=== PATIENT | female | born 1995 | race Caucasian/White ===

== ENCOUNTER 2022-08-21 11:43 | Outpatient (REF) | payer OTHER, SELFPAY ==
--- NOTE | ~2022-08-21 | US_ITS ---
EXAMINATION: US DIAGNOSTIC ULTRASOUND BREAST, LEFT CLINICAL INFORMATION: 26-year-old with several months history tender palpable mass upper outer left breast. No known family history breast cancer. No prior breast imaging. COMPARISON: None. TECHNIQUE: Ultrasound left breast is targeted to the area of palpable concern. Patient is able to point to area of concern at time of imaging. Grayscale imaging and color Doppler are performed without and with harmonics. FINDINGS: The palpable concern corresponds to a solid circumscribed macrolobulated mass 2:00 position 10 cm from nipple measuring 4.4 x 3.2 x 3.6 cm. There is no other cystic or solid mass in the interrogated areas. No skin thickening or edema tracking in soft tissue planes. No focal duct ectasia. Results are discussed with the patient at time of visit. The palpable lesion most likely represents a fibroadenoma. Ultrasound-guided core sampling is recommended. US/US breast LT limited IMPRESSION: -Solid macrolobulated mass at site of palpable concern upper outer left breast measuring 4.4 cm, probable fibroadenoma. ASSESSMENT: BI-RADS 4: Suspicious (subcategory 4A: Low suspicion for malignancy) RECOMMENDATION: Ultrasound-guided core biopsy left breast mass. This patient's information was entered into a reminder system with a target due date for their next mammogram.
== END 2022-08-21 11:44 | disposition home or self-care (01) ==
LOC: HO.MAMMO 11:43
PROVIDERS: Visit Provider Internal Medicine
DX: N63.22 Unspecified lump in the left breast, upper inner quadrant (principal)
CPT/HCPCS: 76642

== ENCOUNTER → 2022-08-25 10:50 | Outpatient (BNVA) | payer OTHER, SELFPAY | PROVIDERS: PCP Internal Medicine; Referring Provider Internal Medicine; Visit Provider Surgery | DX: R92.8 Other abnormal and inconclusive findings on diagnostic imaging of breast (principal) | CPT/HCPCS: 99202 ==

== ENCOUNTER 2022-08-29 09:51 | Outpatient (REF) | payer OTHER, SELFPAY ==
--- NOTE | ~2022-08-29 | US_ITS ---
EXAMINATION: US DIAGNOSTIC ULTRASOUND BREAST, LEFT CLINICAL INFORMATION: Solid palpable macrolobulated mass upper outer left breast 4.4 cm for ultrasound-guided core sampling, probable fibroadenoma. COMPARISON: Targeted left breast ultrasound 08/21/2022. FINDINGS: Proper informed consent is obtained from the patient after discussion of the procedure, potential risks and complications, and alternatives. Patient was given an opportunity for questions. The patient appeared to understand. The patient consented to the procedure and signed the consent form. TECHNIQUE: Ultrasound of the breast is performed with real-time torres scale imaging and color Doppler. COMMENT: The solid mass is demonstrated by ultrasound, similar to recent imaging 08/21/2022. The patient was unable to proceed with the planned ultrasound-guided core sampling. Management options are discussed with the patient. Results and management options discussed with Dr. Parker on 08/29/2022. Patient is advised to maintain upcoming appointment with Dr. Parker at which time further management options will be decided. US/US breast ndl core biopsy LT IMPRESSION: -Ultrasound-guided core biopsy left breast mass is not performed. ASSESSMENT: BI-RADS 4: Suspicious (subcategory 4A: Low suspicion for malignancy) RECOMMENDATION: -Patient to keep upcoming appointment with Dr. Parker as planned.
== END 2022-08-29 09:52 | disposition home or self-care (01) ==
LOC: HO.MAMMO 09:51
PROVIDERS: PCP Internal Medicine; Visit Provider Surgery
DX: R92.8 Other abnormal and inconclusive findings on diagnostic imaging of breast (principal)
CPT/HCPCS: 19083

== ENCOUNTER → 2022-09-07 14:50 | Outpatient (BNVA) | payer OTHER, SELFPAY | PROVIDERS: PCP Internal Medicine; Visit Provider Surgery | DX: R92.8 Other abnormal and inconclusive findings on diagnostic imaging of breast (principal); N63.20 Unspecified lump in the left breast, unspecified quadrant | CPT/HCPCS: 99212 ==

== ENCOUNTER 2022-11-22 05:44 | Day surgery (SDC) | payer OTHER, SELFPAY ==
--- NOTE | 2022-11-21 09:57 | HO.ANESPROP2 ---
Documented by User: Livier Patel NP 11/21/22 09:57 HPI - Anesthesia Eval Consult details Narrative: 27yo F for Left Breast Lumpectomy PMFSH Active Problems Active Problems: All Active Problems (Updated 08/25/22 @ 11:42 by Herrera Parker MD) Left breast mass (Acute) Abnormal ultrasound of breast (Acute) Past Medical History Medical History Asthma Bipolar disorder Surgical History Surgical History History of wisdom tooth extraction Social History Social History Alcohol intake: never Patient Tobacco Use Status: Never used Tobacco Are you DNR?: No Advance Directives: No Advance Directives Information Provided: Yes Recently lost weight without trying: No Nutrition Risks: No Nutritional Risk Patient : No Meds Allergies Allergy/AdvReac Type Severity Reaction Status Date / Time No Known Allergies Allergy Verified 11/16/22 10:19 Home Medications Medication Instructions Recorded Confirmed Last Taken Type clonazepam 0.5 mg tablet 0.5 mg PO DAILY PRN Anxiety 08/25/22 11/16/22 11/22/22 History clonazepam 1 mg tablet 1.5 mg PO BEDTIME 08/25/22 11/16/22 11/21/22 History lansoprazole 30 mg capsule,delayed 30 mg PO BID 08/25/22 11/16/22 11/22/22 History release dexmethylphenidate 15 mg 1 cap PO QAM 11/16/22 11/16/22 11/21/22 History capsule,extended release [id number] (Focalin XR) lamotrigine 25 mg tablet 1 tab PO DAILY 11/16/22 11/16/22 11/22/22 History aripiprazole 2 mg tablet (Abilify) 1 tab PO DAILY 11/22/22 11/22/22 11/22/22 History Exam Exam Date and Time: November 21, 2022 0957 Assessment and Plan Assessment Anesthesia Assessment: Chart Reviewed Documented by User: Bridgett Wade MD 11/22/22 08:09 [facility] Past Medical History Medical History Asthma Bipolar disorder Functional capacity: wheelchair bound Surgical History Surgical History History of wisdom tooth extraction History of Problems with Anesthesia: No Social History Social History Alcohol intake: never Patient Tobacco Use Status: Never used Tobacco Are you DNR?: No Advance Directives: No Advance Directives Information Provided: Yes Recently lost weight without trying: No Nutrition Risks: No Nutritional Risk Patient : No Meds Allergies Allergy/AdvReac Type Severity Reaction Status Date / Time No Known Allergies Allergy Verified 11/16/22 10:19 Home Medications Medication Instructions Recorded Confirmed Last Taken Type clonazepam 0.5 mg tablet 0.5 mg PO DAILY PRN Anxiety 08/25/22 11/16/22 11/22/22 History clonazepam 1 mg tablet 1.5 mg PO BEDTIME 08/25/22 11/16/22 11/21/22 History lansoprazole 30 mg capsule,delayed 30 mg PO BID 08/25/22 11/16/22 11/22/22 History release dexmethylphenidate 15 mg 1 cap PO QAM 11/16/22 11/16/22 11/21/22 History capsule,extended release [id number] (Focalin XR) lamotrigine 25 mg tablet 1 tab PO DAILY 11/16/22 11/16/22 11/22/22 History aripiprazole 2 mg tablet (Abilify) 1 tab PO DAILY 11/22/22 11/22/22 11/22/22 History Exam Airway Mallampati Class: II TM Dist: >3cm Neck ROM: Full Loose/Missing/Broken Teeth: No Heart: RRR Lungs: CTA Assessment and Plan Assessment Anesthesia Assessment: Anesthesia Plan Discussed Final Anesthetic Review History of Problems with Anesthesia: No NPO: Yes ASA Class: II Final Preanesthetic Review: Meds/Allgs Chart Reviewed, Consent Obtained/Reviewed and Anes Risks/Benef Reviewed Patient Risk: Low Procedure Risk: Low Anesthetic Plan Anesthetic Plan: GA Disposition: Standard PACU
[2022-11-22 05:56] VITALS: BMI 32.4
[2022-11-22 06:04] VITALS: BP 127/78; PULSE 104; RESP 20; TEMP 36.6; O2SAT 98
[2022-11-22 06:23] LABS: UPreg QC Valid YES; Urine Pregnancy NEGATIVE (NEGATIVE)
--- NOTE | 2022-11-22 07:40 | PC.NURSE ---
10 mg of versed oral given to patient by anesthesia for iv phobia anxiety
--- NOTE | 2022-11-22 08:26 | P.OP_ITS ---
Operative Note Operative Note Date of Service: 11/22/22 Narrative: Preoperative diagnosis: Left breast lump Postoperative diagnosis: same Procedure: left breast lumpectomy Surgeon: Herrera Parker MD Garment Manufacturer: Maria Ines Chopra PA-C Anesthesia: general LMA Indications for procedure: 27-year-old female patient presenting with a palpable mass in breast which by ultrasound measured approximately 4 cm in diameter. Findings were felt to be suggestive of fibroadenoma. She presents today for excision. Operative findings: 4-5 cm mass in the upper outer quadrant left breast consistent with fibroadenoma, path pending Specimen: left breast lump upper outer quadrant Estimated blood loss: 5 mL Complications: none Procedure details: patient was brought to the OR placed in a supine position. After administering general anesthesia the patient's left breast was prepped wi th ChloraPrep and draped in a sterile fashion. A surgical time-out was called the consent confirmed. Patient received preoperative antibiotics and Venodyne boots were in place. Local anesthesia was then infiltrated over the palpable lump in the upper outer quadrant and a Curvilinear fashion. Incision was carried out through subcutaneous tissue. Superior inferior skin flaps were then created. Electrocautery was then used to dissect around the palpable mass including a rim of normal tissue circumferentially. The mass was excised and marked for margins including long suture at the lateral margin, short suture at the superior margin, and loop suture at the posterior margin. Lesion was then passed off the table and sent to pathology for further examination. Wounds were then irrigated with saline solution and suctioned dry. Wounds were checked for hemostasis. Hemostasis was assured using electrocautery and free ties of 3-0 Polysorb. Deep breast tissue official breast tissue were then reapproximated using interrupted 3-0 Polysorb sutures. Dermis was reapproximated using interrupted 3-0 Polysorb sutures. Skin was closed using a running subcuticular 4-0 Polysorb suture. Steri-Strips, 2 x 2 gauze and Tegaderm were then applied. The patient tolerated the procedure well. Sponge, instrument, and needle counts reported as correct. The patient was transferred to PACU in stable condition.
--- NOTE | 2022-11-22 08:30 | MHC.SHP ---
Pre-Procedural Eval Section A Date of Service: 11/22/22 The patient is an INPATIENT: No Changes since office visit: Yes Patient answered all questions; No Cold of Flu in the past 2 weeks, No New Medical Problems and No Changes in Medication The History & Physical has been completed within 30 days and I have reviewed it.: Yes Section B Chief Complaint: Unspecified lump in the left breast,quadrant Allergies: Allergies Allergy/AdvReac Type Severity Reaction Status Date / Time No Known Allergies Allergy Verified 11/16/22 10:19 Plan Diagnosis/Plan: Unchanged I have reviewed the history and physical and performed a pertinent physical examination on my patient. No changes have occurred unless specified. Time Spent With Patient Time: Total time managing care of this patient today _10___ minutes.
[2022-11-22 08:41] VITALS: BP 102/64; PULSE 87; RESP 17; TEMP 36.2; O2SAT 100
[2022-11-22 08:46] VITALS: BP 119/68; PULSE 90; RESP 17; O2SAT 100
[2022-11-22 08:51] VITALS: BP 130/87; PULSE 98; RESP 16; O2SAT 100
[2022-11-22 08:56] VITALS: BP 130/87; PULSE 101; RESP 16; O2SAT 99
[2022-11-22 09:11] VITALS: BP 128/91; PULSE 92; RESP 16; TEMP 36.2; O2SAT 99
== END 2022-11-22 09:54 | disposition home or self-care (01) ==
PROVIDERS: Nurse Practitioner; PCP Internal Medicine; Visit Provider Surgery
PROC: (CPT 19301; principal; 2022-11-22 07:30)
DX: N63.20 Unspecified lump in the left breast, unspecified quadrant (principal); J45.909 Unspecified asthma, uncomplicated; F31.9 Bipolar disorder, unspecified; Z79.899 Other long term (current) drug therapy
CPT/HCPCS: 19301; 81025; 88307; J0690; J1100; J2405; J2795; J3010

== ENCOUNTER → 2022-11-28 13:26 | Outpatient (BNVA) | payer OTHER, SELFPAY | PROVIDERS: PCP Internal Medicine; Visit Provider Surgery | DX: Z13.89 Encounter for screening for other disorder (principal) ==

== ENCOUNTER 2025-09-01 14:32 | Outpatient (AMB) | payer OTHER, SELFPAY ==
--- NOTE | 2025-08-31 13:36 | MHC.PC.OV ---
Vital Signs 09/01/25 14:40 Height 5 ft 4 in Weight 183 lb 2 oz BMI 31.4 Pulse 103 H Pulse Source Pulse Oximeter Temp 97.3 F Temp Source Temporal Artery Scan Pulse Oximetry (%) 98 Oxygen Delivery Method Room Air Intake Visit Reasons: New PT- Previous Mugg pt - see comments Md Urologist Required: No Accompanied by: Self / Same As Patient Allergies No Known Allergies Allergy (Verified 09/01/25 14:42) Medication List - Last Reconciled 09/14/25 by LINCOLN Amaral aripiprazole (Abilify) 5 mg PO DAILY clonazepam 0.5 mg PO DAILY PRN dexlansoprazole (Dexilant) 60 mg PO DAILY dexmethylphenidate ER (Focalin XR) 20 mg PO QAM Tobacco use date assessed: 09/01/25 Dental Screening Dental Screen Date: 09/01/25 Did you have a dental visit in the last 12 months?: No Did you have a dental problem in the last 6 months where you did not have access to dental care?: No HPI HPI Comments History of Present Illness Details The patient is a 29-year-old female with chronic GERD, ADHD and anxiety presenting to [facility]. The patient reports a history of gastroesophageal reflux disease (GERD) since the age of 11, characterized by chronic acid reflux. She has been on various prescription antacids, including omeprazole, which is currently not providing adequate relief. She previously used Dexilant effectively, but insurance issues have prevented continued use. The patient also reports an overactive bladder, for which she is undergoing bladder retraining therapy. An ultrasound revealed a small ovarian polyp, and she is scheduled to see a director of graduate admissions for further evaluation. Carpal tunnel syndrome symptoms on the right have progressed, requiring the use of a wrist brace during both day and night. The patient experiences numbness, tingling, and weakness, and is seeking an orthopedic referral. The patient has a history of asthma, which is well-managed with avoidance of allergens and occasional use of antihistamines. She reports seasonal allergies and uses non-sedating antihistamines during peak seasons. The patient has not had recent blood work due to a phobia of needles and difficulty with venous access. She has a history of a benign cyst removal, which required special anesthetic considerations due to her phobia. She states her last PAP was done in the past 6 months. She is followed by Psych for her ADHD and anxiety. She is on Focalin XR, Clonazepam and Abilify. Patient was informed and verbally consented to the use of an ambient scribe for clinic note documentation during this visit. [facility] Medical History (Updated 09/14/25 @ 00:06 by LINCOLN Amaral) ADHD Asthma Bipolar disorder Epigastric pain Left breast mass Obesity Right carpal tunnel syndrome Surgical History History of lumpectomy of left breast (11/22/22) History of wisdom tooth extraction Family History (Updated 09/01/25 @ 14:49 by Christiana Ceron MA) Mother Substance abuse Father Substance abuse Other Mental health disorder Social History Housing: House Alcohol intake: never Patient Tobacco Use Status: Never used Tobacco e-Cigarette/Vaping Use: Never Used Current occupational status: employed Cognitive needs: No Hearing needs: No Vision needs: Yes (rx glasses) Female Reproductive History Menstrual Age of Menarche: 8 Questionnaire PHQ-9 Over the last 2 weeks, how often have you been bothered by any of the following problems? 1. Little interest or pleasure in doing things: not at all 2. Feeling down, depressed, or hopeless: not at all 3. Trouble falling or staying asleep, or sleeping too much: not at all 4. Feeling tired or having little energy: not at all 5. Poor appetite or overeating: not at all 6. Feeling bad about yourself - or that you are a failure or have let yourself or your family down: not at all 7. Trouble concentrating on things, such as reading the newspaper or watching television: not at all 8. Moving or speaking so slowly that other people could have noticed. Or the opposite - being so fidgety or restless that you have been moving around a lot more than usual: not at all 9. Thoughts that you would be better off or of hurting yourself in some way: not at all Total score: 0 Depression Screening Interpretation: Negative Depression Screening Done: Yes 41186 - PHQ-9 Billing: Yes Source: Developed by Drs. Jerome Leggett, Keri BAc Adam and colleagues, with an educational tana from [employer]. Thrive Questionnaire Date Thrive assessed: 09/01/25 I am a: Patient Within the past 12 months, did the food you bought not last and you didn't have the money to get more?: Never true Within the past 12 months, did you worry whether your food would run out before you got money to buy more?: Never true Do you have trouble paying for medicines?: No Do you have trouble getting transportation to medical appointments?: No Do you have trouble paying your heating and electricity bill?: No Do you have trouble taking care of your child, family member or friend?: No Do you have trouble with day-to-day activities such as bathing, preparing meals, shopping, managing finances, etc.?: No Are you currently unemployed and looking for a job?: No Are you interested in more education?: No THRIVE Score: 0 AUDIT C Alcohol Use Questionnaire (AUDIT-C) 1. How often do you have a drink containing alcohol?: Never 3. How often do you have six or more drinks on one occasion?: Never Total Score: 0 SONY-7 AMB Questionnaire SONY-7 Date SONY - 7 assessed: 09/01/25 Feeling nervous, anxious, or on edge: 0 = Not at all Not being able to stop or control worryin = Not at all Worrying too much about different things: 0 = Not at all Trouble relaxin = Not at all Being so restless that it is hard to sit still: 0 = Not at all Becoming easily annoyed or irritable: 0 = Not at all Feeling afraid as if something awful might happen: 0 = Not at all Total SONY-7 score (0-4 normal; 5-9 mild; 10-14 moderate; 15-21 severe): 0 Source: Developed by Drs. Jerome Leggett, Ac Darden and colleagues, with an educational tana from [employer]. Review of Systems Const Details: CONSTITUTIONAL Negative HEAD/NECK Negative EAR/NOSE/MOUTH/THROAT Negative RESPIRATORY Reports asthma exacerbated by seasonal allergens. CARDIOVASCULAR Negative GASTROINTESTINAL Reports chronic acid reflux since age 11. GENITOURINARY Reports overactive bladder, undergoing bladder retraining. MUSCULOSKELETAL Reports numbness, tingling, and weakness in hands due to carpal tunnel syndrome NEUROLOGICAL Denies headaches or dizziness PSYCHIATRIC Negative Physical exam (Primary Care) Vital Signs: Last Vital Signs Temp 97.3 F 09/01/25 14:40 Pulse 103 H 09/01/25 14:40 Pulse Ox 98 09/01/25 14:40 Oxygen Delivery Method Room Air 09/01/25 14:40 BMI result Body Mass Index 31.4 GENERAL Well developed, obese, in no apparent distress HEENT Head-Normocephalic Eyes- PERRLA, EOMI, Conjuctiva clear, lids WNL Ears- Canals clear, TMs WNL Mouth/Throat-No lesions, no erythema, no exudate Neck- Supple, No lymphadenopathy, thyroid WNL RESPIRATORY Normal I:E, Clear to auscultation CARDIOVASCULAR Regular, rate and rhythm, No murmurs or rubs GASTROINTESTINAL Soft, nontender, normal bowel sounds, no masses MUSCULOSKELETAL Back- nontender Joints- no pain swelling or deformity NEUROLOGICAL Gait normal PSYCHIATRIC Oriented to person, place and time Mood and affect anxious Appearance WNL Speech WNL Thought processes WNL Tobacco/Smoking Status: Tobacco use Status Tobacco use date assessed 09/01/25 08/31/25 13:37 Patient Tobacco Use Status Never used Tobacco 08/31/25 13:37 e-Cigarette/Vaping Use Never Used 08/31/25 13:37 PHQ-9: PHQ-9 Score PHQ-9: Total score 0 09/01/25 14:49 Depression Screening Interpretation: Negative Thrive Assessment: Date of Thrive Assessment Date Thrive assessed 09/01/25 08/31/25 13:37 Coding Level of Care Code New Pt New Pt Level 4 (63104) Patient Type New Diagnoses Epigastric pain R10.13 ADHD F90.9 Bipolar disorder F31.9 Obesity E66.9 Right carpal tunnel syndrome G56.01 Asthma J45.909 Additional Codes PHQ-9 - 77964 - PHQ-9 Billing: Yes ([id number]) Time Spent (min) 35 Comment Time spent on chart review, medication reconciliation, H&P, Patient education, orders. Assessment & Plan Assessment & Plan (1) Epigastric pain: Code(s): R10.13 - Epigastric pain Category: Medical Plan: The patient will be referred to a furniture detailer for further evaluation, including a possible endoscopy to assess the severity of GERD and rule out complications such as hiatal hernia or H. pylori infection. A trial of Dexilant will be attempted, pending insurance approval, with pantoprazole as an alternative if necessary. Patient to follow up in 2 months or sooner if symptoms persist or worsen. (2) ADHD: Code(s): F90.9 - Attention-deficit hyperactivity disorder, unspecified type Category: Medical Plan: Patient is followed by Pio Esparza (3) Bipolar disorder: Code(s): F31.9 - Bipolar disorder, unspecified Category: Medical Plan: Patient is followed by Pio Esparza (4) Obesity: Comment: BMI today was 31.4 Code(s): E66.9 - Obesity, unspecified Category: Medical Plan: Discussed the health risks of obesity with the patient. Reviewed benefits of even moderate weight loss with the patient. Patient will gradually try and increase exercise to 30-40 min 5-7 times per week. We discussed the patient adding more fruits and vegetables to their diet. Will monitor weight and follow up in 2 months. (5) Right carpal tunnel syndrome: Code(s): G56.01 - Carpal tunnel syndrome, right upper limb Category: Medical Plan: The patient will be referred to an job development specialist for further evaluation and management of carpal tunnel syndrome. An EMG may be required to assess nerve function, although the patient has expressed concerns about needle procedures. (6) Asthma: Code(s): J45.909 - Unspecified asthma, uncomplicated Category: Medical Plan: The patient will continue to manage asthma with avoidance of known allergens and use of antihistamines during peak allergy seasons. Plan I discussed with the patient the need for a gastroenterology referral to evaluate her chronic GERD, including the possibility of an endoscopy to assess for complications. We also talked about trying Dexilant, pending insurance approval, and using pantoprazole as an alternative if necessary. For her carpal tunnel syndrome, I recommended a referral to orthopedics and explained the potential need for an EMG, acknowledging her concerns about needles. We will continue to manage her asthma with allergen avoidance and antihistamines during peak seasons. Orders: Referrals Gastroenterology Referral R10.13 - Epigastric pain Medications: New dexlansoprazole (Dexilant) 60 mg PO DAILY 90 caps 1RF Patient Instructions: - Follow up with furniture detailer for GERD evaluation and possible endoscopy. - Continue bladder retraining therapy and attend scheduled director of graduate admissions appointment. - Wear wrist brace as needed and follow up with job development specialist for carpal tunnel syndrome. - Manage asthma with avoidance of allergens and use of antihistamines during peak seasons.
[2025-09-01 14:40] VITALS: PULSE 103; TEMP 36.3; O2SAT 98; BMI 31.4
--- OUTSIDE RECORDS SUMMARY | 2025-09-01 17:25 | XMS_ITS | Clinical Summary ---
Author Organization [facility] it Address [address] [place] [address] Care Team Providers Care Local Sales Associate Name Role Phone Lurdes Ernst MD Primary Care Provider [phone] Surgical History Surgery Date Site/Laterality Comments WISDOM TOOTH EXTRACTION PROCEDURE: HISTORICAL WISDOM TEETH EXTRACTION Medical History Medical History Date Comments GERD (gastroesophageal reflux disease) 11/27/2013 DX:GERD (gastroesophageal reflux disease) Asthma 11/27/2013 DX:Asthma Environmental allergies 11/27/2013 DX:Envir onmental allergies Asperger syndrome 11/27/2013 DX:Asperger sy ndrome ADHD (attention deficit hype ractivity disorder) 11/27/2013 DX:ADHD (attention deficit hyperactivity disorder) Anxiety 11/27/2013 DX:Anxiety Insomnia 11/27/2013 DX:Insomnia Family History Medical History Relation Name Comments Asthma Brother 1 Depression Brother 2 Depression Father Coronary artery disease Maternal Grandfather Coronary artery disease Maternal Grandmother Asthma Mother Diabetes Uncle Hypertension Neg Hx Other cancer Neg Hx Relation Name Status Comments Brother 1 Brother 2 Father Maternal Grandfather Maternal Grandmother Mother Uncle Social History Tobacco Use Types Packs/Day Years Used Date Smoking Tobacco: Never Smokeless Tobacco: Never Alcohol Use Standard Drinks/Week Comments No 0 (1 standard drink = 0.6 oz pur e alcohol) Comments Unknown Sex and Gender Information Value Date Recorded Sex Assigned at Not on file Legal Sex Female 10:31 AM EST Gender Identity Not on file Sexual Orientation Not on file Obstetrics History Plan of Treatment Health Maintenance Due Date Last Done Comments Pneumococcal Vaccine: Pediatrics (0 to 5 Years) and At-Risk Patients (6 to 49 Years) (1 of 2 - PCV) 2013 HPV Vaccines (3 - 3-dose series) 01/30/2014 11/07/2013, 06/27/2013 Cervical Cancer Screening: Pap Smear 2015 Meningococcal B Vaccine (2 of 2 - Bexsero SCDM 2-dose series) 04/08/2018 10/09/2017 HIV Screening 10/17/2022 Hepatitis C Screening 10/17/2022 Social Influencers of Health Screening 10/17/2022 Depression Screening 11/19/2024 COVID-19 Vaccine ( - season) 2025 03/29/2022 Influenza Vaccine (#1) 2025 9, 10/12/2009, 10/28/2003, Additional history exists DTaP,Tdap,and Td Vaccines (8 - Td or Tdap) 07/19/2027 07/19/2017, 07/08/2007, 03/22/2000, Additional history exists RSV Immunization Adult Patients (1 - 1-dose 75+ series) 2069 Hepatitis B Vaccines Completed 07/16/1995, 01/24/1995, 1994 HIB Vaccines Completed 04/21/1996, 01/1996, 07/16/1995, Additional history exists IPV Vaccines Completed 03/22/2000, 01/1996, 07/16/1995, Additional history exists MMR Vaccines Completed 03/22/2000, 01/18/1996 Meningococcal ACWY Vaccine Completed 07/19/2017, Hepatitis A Vaccines Aged Out No long er eligible based on patient's age to complete this topic RSV Immunization Patients Under 20 months Aged Out No longer eligible based on patient's age to complete this topic Varicella Vaccines Aged Out No longer eligible based on patient's age to complete this topic Care Teams Local Sales Associate Relationship Specialty Start Date End Date Lurdes Ernst MD [address] [place] [id number] PCP - General 03/31/22
--- OUTSIDE RECORDS SUMMARY | 2025-09-01 17:25 | XMS_ITS | Encounter Summary ---
Author Organization [facility] Address [address] [place] [address] Phone Care Team Providers Care Head Animal Keeper Name Role Phone Ginger Alvarez MD Primary Care Provider Unava ilable Encounter Details Date Type Department Care Team (Late st Contact Info) Description 07/05/2017 Conversion Encounter [facility] - [address] [address] Social History Tobacco Use Types Packs/Day Years Used Date Smoking Tobacco: Never Assessed Comments Unknown Sex and Gender Information Value Date Recorded Sex Assigned at Not on file Legal Sex Female 6:21 PM EDT Gender Identity Not on file Sexual Orientation Not on file documented as of this encounter Plan of Treatment Not on file documented as of this encounter Visit Diagnoses Not on filedocumented in this encounter Care Teams Head Animal Keeper Relationship Specialty Start Date End Date Ginger Alvarez MD PCP - General 06/29/17 documented as of this encounter
--- OUTSIDE RECORDS SUMMARY | 2025-09-01 17:25 | XMS_ITS | Clinical Summary ---
Author Organization [facility] Address [address] [facility] [address] [place] [id number] Phone Care Team Providers Care Marketing Officer Name Role Phone Unknown, Unknown Primary Care Provider Randa casiano Allergies Active Allergy Reactions Criticality Noted Date Comments Menthol Itching 02/02/2015 Medications VRAYLAR 1.5 mg capsule 09/26/2023 Active VRAYLAR 3 mg capsule Take 1 capsule by mouth every morning. 10/31/2023 Active citalopram (CELEXA) 10 MG tablet 09/26/2023 Active clonazePAM (KLONOPIN) 0.5 MG tablet 1 mg. 09/25/2023 Active FOCALIN XR 20 mg 24 hr capsule Take 20 mg by mouth every morning. 10/25/2023 Active lansoprazole (PREVACID) 30 MG capsule Take 2 capsules by mouth daily. 06/28/2022 Active rOPINIRole (REQUIP) 1 MG tablet 08/20/2023 Active Active Problems No known active problems Social History Tobacco Use Types Packs/Day Years Used Date Smoking Tobacco: Never Smokeless Tobacco: Never Tobacco Cessation:Counseling Given: Not Answered Alcohol Use Standard Drinks/Week Comments Never 0 (1 standard drink = 0.6 oz pur e alcohol) Education Answer Date Recorded Are you interested in more education? Not on vijay e 11/05/2023 Are you concerned about learning? Not on file 11/05/2023 No 11/05/2023 No 11/05/2023 Digital Access Answer Date Recorded No 11/05/2023 No 11/05/2023 Reliable internet access at home? Not on file 11/05/2023 Device with a working camera? Not on file Comments Unknown Sex and Gender Information Value Date Recorded Sex Assigned at Not on file Legal Sex Female 4:07 PM EST Gender Identity Not on file Sexual Orientation Not on file Last Filed Vital Signs Vital Sign Reading Time Taken Comments Blood Pressure 100/68 11/05/2023 5:04 PM EST Pulse 95 11/05/2023 5:04 PM EST Temperature 36.1 C (97 F) 11/05/2023 5:04 PM EST Respiratory Rate 20 11/05/2023 5:04 PM EST Oxygen Saturation 99% 11/05/2023 5:04 PM EST Inhaled Oxygen Concentration - - Weight 77.1 kg (170 lb) 11/05/2023 5:04 PM EST Height 164.5 cm (5' 4.75 ) 11/05/2023 5:04 PM ES T Body Mass Index 28.51 11/05/2023 5:04 PM EST Plan of Treatment Health Maintenance Due Date Last Done Comments DEPRESSION SCREENING 2006 HEPATITIS C SCREENING 2012 HIV ONE-TIME SCREENING (18-65 YEARS) 2012 PAP SMEAR 2015 MENINGOCOCCAL VACCINES (B) ([facility]) 04/08/2018 10/09/2017 INFLUENZA VACCINE (#1) 2025 10/12/2009 COVID-19 VACCINE ( season) 2025 04/08/2021 Adult Td,Tdap Booster 07/19/2027 07/19/2017, 007 HIB VACCINES Completed 04/21/1996, 06/20, 04/09/1995, Additional history exists MENINGOCOCCAL VACCINES (ACWY) Completed 07/19/2017, 06/27/2013 SMOKING STATUS SCREENING (Once After 26 Yrs) Completed 11/05/2023 HEPATITIS A VACCINES Aged Out No long er eligible based on patient's age to complete this topic PNEUMOCOCCAL VACCINES (0-49 years) Aged Out No longer eligible based on patient's age to complete this topic Medical Devices Not on file Insurance [facility] [place] [address] [place] [address] [place] [address] [place] [address] [place] [address] [place] [address] A[place] [facility] Care Teams Marketing Officer Relationship Specialty Start Date End Date Unknown, Unknown, PCP - General 11/05/23 Additional Source Comments The information contained in this document represents components of the legal health record. It is not the complete legal health record.[facility]
--- OUTSIDE RECORDS SUMMARY | 2025-09-01 17:25 | XMS_ITS | Clinical Summary ---
Author Organization [facility] Address [address] [place] [address] Phone Care Team Providers Care Coil Tier Name Role Phone Ginger Alvarez MD Primary Care Provider [place] jade Immunizations Immunization Administration Dates Next Due DTP 03/22/2000, 6,07/16/1995,04/09,01/24/1995 DTaP 03/22/2000, 5,04/09/1995,01/24 DTaP 5 03/22/2000 H1N1 10/12/2009 HPV, Quadrivalent 06/27/2013 Hep B, ped/adol 07/16/1995,01/24/1995,1994 Hib (PRP-T) 04/21/1996, 5,04/09/1995,01/24 IPV 03/22/2000 Influenza, injectable, quadr ivalent, preservative free 10/12/2009,07/16/1995 Influenza, injectable, trivalent 10/12/2009,10/19 MMR 03/22/2000,01/18/1996 Meningococcal Conj (Menactra) MCV4P 06/27/2013 OPV 03/22/2000, 5,04/09/1995,01/24 Tdap 07/08/2007 Family History Relation Name Status Comments Brother Alive Brother: Asperg er's, Asthma Father Alive Father: Alive a nd well Maternal Grandfather one c d iabetes. other brother aspergers, obsessive- won the random facts award. cerebral aneurism. Maternal Grandmother asperge rs, anxious Mother Alive Mother: Alive a nd well Other Siblings: saturnino freitas brother 1986 aspergers and adhd. ines 1988 adhd, some mild aspergers, Social History Tobacco Use Types Packs/Day Years Used Date Smoking Tobacco: Never Assessed Comments Unknown Sex and Gender Information Value Date Recorded Sex Assigned at Not on file Legal Sex Female 6:21 PM EDT Gender Identity Not on file Sexual Orientation Not on file Last Filed Vital Signs Vital Sign Reading Time Taken Comments Blood Pressure 110/64 06/26/2013 12:00 AM EDT Pulse 74 04/23/2013 12:00 AM EDT Temperature 36.9 C (98.5 F) 04/23/2013 12:00 AM EDT Respiratory Rate - - Oxygen Saturation 98% 04/23/2013 12:00 AM EDT Inhaled Oxygen Concentration - - Weight 54.5 kg (120 lb 3.2 oz) 06/26/2013 12:00 AM EDT Height 161.9 cm (5' 3.75 ) 06/26/2013 12:00 AM E DT Body Mass Index 20.79 06/26/2013 12:00 AM EDT Plan of Treatment Health Maintenance Due Date Last Done Comments Varicella Vaccines (1 of 2 - 13+ 2-dose series) 2007 HPV Vaccines (3 - 3-dose series) 01/30/2014 11/07/2013, 06/27/2013 Influenza Vaccines (#1) 2025 10/12/20, 10/12/2009, 10/28/2003, Additional history exists COVID-19 Vaccine ( season) 2025 DTaP,Tdap,and Td Vaccines (8 - Td or Tdap) 07/19/2027 07/19/2017, 07/08/2007, 03/22/2000, Additional history exists Hepatitis B Vaccines Completed 07/16/1995, 01/24/1995, 1994 HIB Vaccines Completed 04/21/1996, 01/1996, 07/16/1995, Additional history exists IPV Vaccines Completed 03/22/2000, 02/2000, 04/21/1996, Additional history exists MMR Vaccines Completed 03/22/2000, 01/18/1996 Meningococcal Vaccine Completed 07/19/2017, 013 Hepatitis A Vaccines Aged Out No long er eligible based on patient's age to complete this topic Men B Vaccine Aged Out No longer elig ible based on patient's age to complete this topic Pneumococcal Vaccine Aged Out No long er eligible based on patient's age to complete this topic Care Teams Coil Tier Relationship Specialty Start Date End Date Ginger Alvarez MD PCP - General 06/29/17
--- OUTSIDE RECORDS SUMMARY | 2025-09-01 17:25 | XMS_ITS | Encounter Summary ---
Author Organization [facility] Address [address] [place] [address] Phone Care Team Providers Care Blind Teacher Name Role Phone Ginger Alvarez MD Primary Care Provider Unava ilable Encounter Details Date Type Department Care Team (Late st Contact Info) Description 04/07/2018 Conversion Encounter [facility] [address] [address] Social History Tobacco Use Types Packs/Day Years [...] on filedocumented in this encounter Care Teams Blind Teacher Relationship Specialty Start Date End Date Ginger Alvarez MD PCP - General 06/29/17 documented as of this encounter
== END 2025-09-01 15:50 | disposition home or self-care (01) ==
LOC: HO.HMCHD 14:33
PROVIDERS: PCP Physician Assistant Medical; Visit Provider Physician Assistant Medical
DX: R10.13 Epigastric pain (principal); F90.9 Attention-deficit hyperactivity disorder, unspecified type; F31.9 Bipolar disorder, unspecified; E66.9 Obesity, unspecified; G56.01 Carpal tunnel syndrome, right upper limb; J45.909 Unspecified asthma, uncomplicated

== ENCOUNTER → 2025-09-01 14:32 | Outpatient (BNVA) | payer OTHER, SELFPAY | PROVIDERS: Visit Provider Physician Assistant Medical | DX: R10.13 Epigastric pain (principal); K21.9 Gastro-esophageal reflux disease without esophagitis; F90.9 Attention-deficit hyperactivity disorder, unspecified type; F31.9 Bipolar disorder, unspecified; E66.9 Obesity, unspecified; G56.01 Carpal tunnel syndrome, right upper limb; J45.909 Unspecified asthma, uncomplicated; Z13.31 Encounter for screening for depression; Z13.39 Encounter for screening examination for other mental health and behavioral disorders | CPT/HCPCS: 96127; 99202 ==